=== PATIENT | female | born 1975 | race Two or more races ===

== ENCOUNTER 2018-02-26 15:53 | Observation (INO) | payer OTHER ==
[~2018-02-26] VITALS: Ht 167.6 cm; Wt 111.1 kg
[2018-02-26 00:10] VITALS: BP 126/72
[~2018-02-26 15:53] MED LIST: EXCEDRIN MIGRA1 EACH PO; HUMIRA20 MG/0.4 SC; METFORMIN HCL500 MG PO; SYNTHROID75 MCG PO; VOLTAREN-XR100 MG PO; XANAX0.25 MG PO; ZYRTEC10 M3 PO
[2018-02-26] MEDS ORDERED: ASPIRIN 81 MG CHEW TAB PO ONE (16:15)
[2018-02-26 16:25] LABS: BASOPHILS % 0.5 % (0.0-1.0); EOSINOPHILS # (AUTO) 0.3 (0.0-0.4); HEMATOCRIT 47.2 % (34.2-44.1); HEMOGLOBIN 15.5 g/dL (12.0-16.0); LYMPHOCYTES # (AUTO) 2.6 (1.0-3.2); LYMPHOCYTES % 31.9 % (18.0-39.1); MEAN CORPUSCULAR HEMOGLOBIN 28.4 pg (28-32); MEAN CORPUSCULAR HGB CONC 32.8 g/dL (31-35); MEAN CORPUSCULAR VOLUME 86.4 fL (81-99); MONOCYTES # (AUTO) 0.6 (0.2-0.8); MONOCYTES % 6.8 % (4.4-11.3); NEUTROPHILS # (AUTO) 4.8 (2.1-6.9); NEUTROPHILS % 57.4 % (38.7-80.0); PLATELET COUNT 285 x10e3/uL (140-360); RED BLOOD COUNT 5.46 x10e6/uL (3.6-5.1); RED CELL DISTRIBUTION WIDTH 13.2 % (11.7-14.4)
[2018-02-26 16:36] LABS: INR 1.03; PARTIAL THROMBOPLASTIN TIME 31.6 seconds (23.8-35.5); PROTHROMBIN TIME 12.7 seconds (11.9-14.5)
[2018-02-26 16:46] LABS: ALANINE AMINOTRANSFERASE 69 IU/L (0-55); ALBUMIN 4.1 g/dL (3.5-5.0); ALBUMIN/GLOBULIN RATIO 0.9 (0.8-2.0); ALKALINE PHOSPHATASE 100 IU/L (40-150); BLOOD UREA NITROGEN 11 mg/dL (7-26); BUN/CREATININE RATIO 13 (6-25); CALCIUM 10.3 mg/dL (8.4-10.2); CARBON DIOXIDE 21 mmol/L (22-29); CHLORIDE 106 mmol/L (98-107); CREATINE KINASE 64 IU/L (29-168); CREATININE, SERUM 0.84 mg/dL (0.57-1.11); EST GLOMERULAR FILTRATION RATE > 60 ML/MIN (60-); GLUCOSE 134 mg/dL (74-118); SODIUM 140 mmol/L (136-145)
--- NOTE | 2018-02-26 17:13 | Diagnostic Imaging Report ---
A single frontal view of the chest. HISTORY: Chest pain COMPARISON: Images from chest radiographs September 19, 2015 DISCUSSION: Portable technique, limits sensitivity of the exam. Soft tissue attenuation partially limits sensitivity of the exam. Tubes/Lines: None Lungs and pleura: Low lung volumes result in bibasilar vascular crowding, accentuation of the pulmonary interstitial markings, central pulmonary vasculature, and the cardiac silhouette. Allowing for these limitations, the findings are as follows: No evidence of a consolidative pneumonia or pulmonary alveolar edema. No definite pleural effusion or pneumothorax is identified. Heart and mediastinum: The cardiomediastinal silhouette appears unremarkable. Bones: No acute osseous lesion is identified, given this limited exam. IMPRESSION: No acute radiographic abnormality. Signed by: Dr. Alex Gates D.O., M.M.M. on 02/26/2018 5:08 PM
[2018-02-26 17:47] LABS: BILIRUBIN,URINE NEGATIVE (NEGATIVE); CLARITY,URINE CLEAR (CLEAR); COLOR,URINE YELLOW (YELLOW); KETONES,URINE NEGATIVE (NEGATIVE); LEUKOCYTE ESTERASE ,URINE NEGATIVE (NEGATIVE); NITRITE,URINE NEGATIVE (NEGATIVE); PROTEIN,URINE DIPSTICK NEGATIVE (NEGATIVE); URINE UROBILINOGEN 0.2 mg/dL (0.2 - 1)
[2018-02-26 18:11] LABS: BACTERIA,URINE MODERATE /HPF; EPITHELIAL CELLS,URINE MODERATE /LPF
[2018-02-26] MEDS ORDERED: DEXILANT60 MG PO (18:30)
[2018-02-26] MEDS ORDERED: MORPHINE SULFATE 2 MG/ML SYR IV STA (18:43)
[2018-02-26] MEDS ORDERED: ACETAMINOPHEN 325 MG TAB PO NR (18:45)
[2018-02-26 19:45] VITALS: BP 106/58
[2018-02-26] MEDS ORDERED: MORPHINE SULFATE 2 MG/ML SYR IV PRN (19:45)
[2018-02-26] MEDS ORDERED: DEXTROSE 50% SYRINGE 50 ML IV PRN (19:45)
[2018-02-26] MEDS: INSULIN REGULAR, HUMAN 100 UNIT/1 ML 3ML VIAL SQ SCH (21:00)
[2018-02-26 21:25] VITALS: BP 132/73
[2018-02-26 21:42] VITALS: BP 132/73
[2018-02-27 01:34] LABS: CREATINE KINASE 56 IU/L (29-168)
[2018-02-27 01:35] LABS: CREATINE KINASE MB < 1.00 ng/mL (0-4.3)
[2018-02-27 04:42] LABS: ANION GAP 15.7 mmol/L (8-16); BLOOD UREA NITROGEN 11 mg/dL (7-26); BUN/CREATININE RATIO 12 (6-25); CALCIUM 9.3 mg/dL (8.4-10.2); CARBON DIOXIDE 23 mmol/L (22-29); CHLORIDE 104 mmol/L (98-107); CHOL/HDL RATIO 5.5 (3.0-3.6); CHOLESTEROL 180 MD/DL (0-199); EST GLOMERULAR FILTRATION RATE > 60 ML/MIN (60-); GLUCOSE 267 mg/dL (74-118); HDL CHOLESTEROL 33 MG/DL (40-60); LDL CHOLESTEROL 117 MG/DL (60-130); POTASSIUM 3.7 mmol/L (3.5-5.1); SODIUM 139 mmol/L (136-145); TRIGLYCERIDES 151 MG/DL (0-149)
[2018-02-27 05:15] VITALS: BP 120/79
[2018-02-27 07:50] VITALS: BP 123/64
[2018-02-27] MEDS: INSULIN REGULAR, HUMAN 100 UNIT/1 ML 3ML VIAL SQ SCH ×2 (08:20→12:42)
[2018-02-27 08:58] LABS: CREATINE KINASE 51 IU/L (29-168)
[2018-02-27] MEDS ORDERED: PANTOPRAZOLE SOD 40 MG TABEC PO SCH (09:00)
[2018-02-27] MEDS ORDERED: ASPIRIN 325 MG TAB EC PO SCH (09:00)
[2018-02-27] MEDS ORDERED: METOPROLOL TARTRATE 25 MG TAB PO SCH (09:00)
--- NOTE | 2018-02-27 09:12 | History and Physical ---
PRIMARY CARE PHYSICIAN: None. CHIEF COMPLAINT: Chest pain. HISTORY OF PRESENT ILLNESS: This is a 42-year-old woman with a history of diabetes mellitus and lupus, now developing substernal chest pain described as substernal chest pain with no radiation. She did have some shortness of breath and dizziness as well as nausea and diaphoresis. Blood pressure at work was 186/111. Therefore, she came to the hospital for further evaluation and management. She did have prior chest pain in the past, but was told it was musculoskeletal related. Now her symptoms are improved. PAST MEDICAL HISTORY: Diabetes mellitus, lupus, pneumonia. PAST SURGICAL HISTORY: Achilles tendon, left side, repaired. Cholecystectomy. Orbital socket repair in 1993 on the left side. ALLERGIES: PER ELECTRONIC MEDICAL RECORD. FAMILY AND SOCIAL HISTORY: The patient is . She has no children. Occasional alcohol. No cigarettes. She works as a nurse at the [employer]. MEDICATIONS: Per electronic medical record. REVIEW OF SYSTEMS: Denies any fever. Denies any leg pain, back pain, vision changes. Denies any focal weakness. PHYSICAL EXAMINATION VITAL SIGNS: Have been reviewed. GENERAL APPEARANCE: A tired-appearing woman resting in bed. HEENT: Anicteric. CARDIOVASCULAR: Normal S1 and S2. LUNGS: Moderate breath sounds. ABDOMEN: Soft, nontender, nondistended. EXTREMITIES: No edema or calf tenderness. NEUROLOGIC: Alert and oriented times 3, moving all extremities. MUSCULOSKELETAL: No chest wall tenderness. SKIN: Dry. PSYCHIATRIC: Normal affect. LABS: Reviewed. MEDICATIONS: Reviewed. ASSESSMENT: A 42-year-old woman. 1. Chest pain. 2. Obesity. 3. Diabetes mellitus. 4. Hyperlipidemia. 5. Gastroesophageal reflux disease. 6. Hypertension. PLAN 1. Trend cardiac enzymes. 2. Obtain a 2-D echocardiogram. 3. Follow up cardiology's recommendations. 4. Treat hypertension. 5. Initiate PPI. 6. Use Lovenox and PPI. 7. Disposition: Followup testing and cardiology's recommendations. Obtain 2-D echocardiogram. Job#: [id number]
[2018-02-27] MEDS ORDERED: ACETAMINOPHEN 325 MG TAB PO PRN (09:15)
[2018-02-27 11:23] VITALS: BP 135/94
--- NOTE | 2018-02-27 14:38 | Consultation ---
DATE OF CONSULTATION: February 27, 2018 REASON FOR CONSULTATION: Chest pain. HPI: This is a 42-year-old female with a history of diabetes, lupus, and depression. Patient presents to [facility] ER with complaints of chest pain while at work. Therefore, came to the ER for further evaluation. Cardiology was consulted. Patient was seen in a room with significant other at bedside. Patient reports for the past several days to weeks been having substernal chest pain; however, yesterday while at work, developed severe chest pain with shortness of breath and dizziness. Therefore, came to the ER. Reports the chest pain has been going on with and without activities. Worse with deep breathing. Currently patient is chest pain free. PAST MEDICAL HISTORY: Diabetes, lupus, depression. SURGICAL HISTORY: Left Achilles tendon repair, cholecystectomy, and left elbow fracture repair. FAMILY HISTORY: Mother alive, age 60s, with a history of hypertension and hep C. Father is alive, age 60, with questionable lupus. SOCIAL HISTORY: She reports being . Works as a nurse at the [employer]. Denies any alcohol use or tobacco use. ALLERGIES: TO CONTRAST AND TRAMADOL. HOME MEDICATIONS: Include 1. Januvia. 2. Humira. 3. Cymbalta. REVIEW OF SYSTEMS GENERAL: Denies any fatigue, weakness, fevers, chills, night sweats. SKIN: No rashes or sores. HEENT: Positive for nausea. Denies any vomiting or vision changes, any blurred vision or double vision. Any earaches, vertigo, tinnitus, any epistaxis, sore throat, swollen neck. CARDIAC: Positive for chest pain as above. Positive dyspnea on exertion. Denies any orthopnea, PND, or any lower extremity edema. RESPIRATORY: Positive for shortness of breath. Denies any hemoptysis. GI: Positive for nausea. Good appetite. Denies any diarrhea or constipation, however does report having bloody rectal bleeding, bright red in nature. Does have a history of hemorrhoids. VASCULAR: Denies any lower extremity edema, any claudication. MUSCULOSKELETAL: Denies any muscle weakness. Does have lower back pain and generalized joint pains. NEUROLOGIC: Denies any tremors, weakness, paralysis, any fainting, blackouts, seizures. HEMATOLOGY: Denies any anemia, any bruising. ENDOCRINE: Denies any heat or cold intolerance, any polyuria, polydipsia or polyphagia. PHYSICAL EXAMINATION VITALS: Height 60 inches, weight 245 pounds. BMI 39. Current vital signs: Temperature 97.6, pulse 82, respiratory rate 16, blood pressure 135/94, pulse ox 94% on room air. GENERAL: Appears stated age. No acute distress. Reliable informant. SKIN: Does have some redness to her cheeks but no rashes or bruises. HEENT: Normocephalic. Pupils are equal and reactive. Extraocular movements are intact. NECK: Trachea midline. Oral mucosa is pink. No thyromegaly. No JVD. HEART: Regular rate and rhythm. No murmurs or clicks noted. LUNGS: Bilateral breath sounds clear to auscultation. Good airway entry and exit. ABDOMEN: Soft, nontender and nondistended. No organomegaly noted, however she is obese. MUSCULOSKELETAL: Good muscle strength throughout. No lower extremity edema, swelling. VASCULAR: There are +2 bilateral radial pulses, +2 DP and PT pulses. NEUROLOGIC: Cranial nerves II through XII seem intact. LABS: White count 8, hemoglobin 15, hematocrit 47, platelets 285. Sodium 139, potassium 3.7, BUN 11, creatinine 0.9. A1c is 7.8. Troponin less than 0.001, next less than 0.005, next less than 0.05. EKG showing normal sinus rhythm. Chest x-ray showing no acute abnormalities. ASSESSMENTS 1. Chest pain. 2. Hypertension. 3. Diabetes. 4. Lupus. PLANS 1. Patient presents with chest pain symptoms, atypical for cardiac, for the past several days. Enzymes are strongly negative x3. Preliminary echo was done, showing normal heart function and structure. 2. A stress test was offered to patient; however, patient does not want to have any stress test and wants to go home. Risks and benefits were discussed; however, patient wants to go home. 3. Do recommend that patient follow up with her clerk cashier regarding her lupus. 4. Patient is okay to leave from a cardiac standpoint since patient is refusing any further workup. Thank you very much for this consult. Dictated by Valdez Madrigal, Nurse Practitioner Job#: [id number] CANDACE
[2018-02-27 14:57] VITALS: BP 118/67
[2018-02-27] MEDS ORDERED: ENOXAPARIN SOD INJ 40 MG/0.4 ML SYR SC SCH (17:00)
[2018-02-27] MEDS ORDERED: PRAVASTATIN 20 MG TAB PO SCH (21:00)
--- NOTE | 2018-02-28 05:56 | Discharge Summary ---
PRINCIPAL DIAGNOSES 1. Atypical chest pain. 2. Obesity. 3. Diabetes mellitus. Hemoglobin A1c is 7.8, low-density lipoprotein 117, and triglycerides 151. 4. Hyperlipidemia. 5. Gastroesophageal reflux disease. SECONDARY DIAGNOSIS: Hypertension. CHIEF COMPLAINT: Chest pain. HISTORY OF PRESENT ILLNESS: This is a 42-year-old woman with chest pain. Refer to the H and P for further details. HOSPITAL COURSE: Patient was evaluated for chest pain. Cardiac enzymes were negative. Evaluated by cardiology. Stress test was offered, but patient refused. Therefore, patient was transitioned home and agreed to follow up with her primary care doctor stress test as an outpatient. DISCHARGE MEDICATIONS: Per electronic medical record. Patient was cleared by cardiology. FOLLOWUP 1. With primary care doctor in 1 week. 2. Cardiology in 3 to 5 days. CONDITION ON DISCHARGE: Stable and improving. DISCHARGE LOCATION: Home. HELIO MORTON MD Job#: [id number]
== END 2018-02-27 15:39 | disposition home or self-care (01) ==
LOC: ER 15:53 → ERHOLD 20:04 → IMCU 21:06
PROVIDERS: ADMIT Internal Medicine; ATTEND Internal Medicine
DX: R07.89 Other chest pain (principal); I10 Essential (primary) hypertension; M45.9 Ankylosing spondylitis of unspecified sites in spine; E66.9 Obesity, unspecified; E11.65 Type 2 diabetes mellitus with hyperglycemia; K21.9 Gastro-esophageal reflux disease without esophagitis; E78.5 Hyperlipidemia, unspecified; M32.9 Systemic lupus erythematosus, unspecified; Z87.01 Personal history of pneumonia (recurrent); Z82.49 Family history of ischemic heart disease and other diseases of the circulatory system; Z88.8 Allergy status to other drugs, medicaments and biological substances; Z91.041 Radiographic dye allergy status
CPT/HCPCS: 36415; 71045; 80048; 80053; 80061; 81001; 82550 ×2; 82553 ×2; 82948 ×2; 83036; 83880; 84484 ×2; 84702; 85025; 85379; 85610; 85730; 93005; 93306; 99284; G0378 ×2; J2270 ×2; S0164

== ENCOUNTER → 2018-05-29 | Day surgery (SDC) | payer OTHER ==
[2018-05-27 11:14] LABS: BASOPHILS % 0.4 % (0.0-1.0); EOSINOPHILS # (AUTO) 0.2 (0.0-0.4); EOSINOPHILS % 3.2 % (0.0-6.0); HEMATOCRIT 44.6 % (34.2-44.1); HEMOGLOBIN 14.5 g/dL (12.0-16.0); LYMPHOCYTES # (AUTO) 1.8 (1.0-3.2); LYMPHOCYTES % 23.9 % (18.0-39.1); MEAN CORPUSCULAR HEMOGLOBIN 28.1 pg (28-32); MEAN CORPUSCULAR HGB CONC 32.5 g/dL (31-35); MEAN CORPUSCULAR VOLUME 86.4 fL (81-99); MONOCYTES # (AUTO) 0.4 (0.2-0.8); MONOCYTES % 5.5 % (4.4-11.3); NEUTROPHILS # (AUTO) 4.9 (2.1-6.9); NEUTROPHILS % 66.6 % (38.7-80.0); PLATELET COUNT 225 x10e3/uL (140-360); RED BLOOD COUNT 5.16 x10e6/uL (3.6-5.1)
[~2018-05-29] MED LIST changes: +CYMBALTA20 MG PO; +DEXILANT60 MG PO; +FENTANYL CITRATE/PF 100MCG/2 ML INJ ONE; +INSULIN REGULAR, HUMAN 100 UNIT/1 ML 3ML VIAL ONE; +JANUVIA100 MG PO; +MIDAZOLAM HCL 2 MG/2 ML VIAL ONE; +PROPOFOL IV EMULSION 10 MG/ML 50 ML VIAL ONE; +TOUJEO; +TYLENOL WITH C1 EACH PO; +ULTRAM50 MG PO
--- OUTSIDE RECORDS SUMMARY | 2018-05-29 11:14 | XMS REPORT | Continuity of Care Document ---
Author Author Shira ga Organization Interface Address Unknown Phone Unavailable Problems Problem Status Onset Date Classification Date Reported Comments Source M25.552 - [facility] Active 03/05/2013 [facility] [place] Medications Medication Details Route Status Patient Instructions Ordering Provider Order Date Source Allergies, Adverse Reactions, Alerts Substance Category Reaction Severity Reaction type Status Date Reported Comments Source Immunizations Immunization Date Given Site Status Last Updated Comments Source Results Order Name Results Value Reference Range Date Interpretation Comments Source Hip bilat w pelvis and both lat hips DX Hip bilat w pelvis and both lat hips DX EXAM: XR LEFT HIP 2 VIEWS AND AP PELVIS DATE: 08/21/2016 11:47 AM CDT INDICATION: Left hip pain COMPARISON: None. TECHNIQUE: AP and frogleg lateral radiographs of the bilateral hips. DISCUSSION: No acute fracture or malalignment is identified. Hip joint spaces are preserved bilaterally. Mild facet osteoarthritis is seen in the lumbar spine. No soft tissue abnormality is identified. IMPRESSION: No acute bony abnormality. 08/21/2016 - - This report was dictated by a Associate Veterinarian/Fellow. I have personally reviewed the images as well as the Resident's interpretation and agree with the findings. Read by: Kal Kennedy MD Resident: Kal Kennedy MD Dictated Date/time: 08/21/16 13:41 Electronically Signed by: Kavita Dias MD 08/21/16 17:11 FINAL REPORT [facility] Spine lumbar 2 or 3 views DX Spine lumbar 2 or 3 views DX EXAMINATION: Lumbar spine - 2 to 3 views HISTORY: Inflammatory polyarthropathy FINDINGS: Frontal, lateral, and coned lateral views of the lumbar spine are performed without comparison. The alignment is normal without listhesis. The intervertebral disc spaces are normal. The vertebral body heights are normal without compression fracture. The sacral ala appear intact. Cholecystectomy clips are noted. IMPRESSION: 1. Normal alignment and intervertebral disc spaces of the lumbar spine. 01/17/2015 - - Read by: David Orta MD Dictated Date/time: 01/17/15 15:01 Electronically Signed by: David Orta MD 01/17/15 15:02 FINAL REPORT [facility] Foot 3 views bilateral DX Foot 3 views bilateral DX EXAMINATION: Bilateral feet 3 views each HISTORY: Unspecified inflammatory polyarthropathy FINDINGS: 3 view non-weightbearing examination of each foot is performed without comparison. There are no fractures or dislocations. 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 The remaining joint spaces are normal. There are no ankle effusions. There is heterotopic ossification at the Achilles insertion bilaterally. There are no radiopaque foreign bodies identified. IMPRESSION: 1. No radiographic evidence of inflammatory arthritis of either foot. 01/17/2015 - - Read by: David Orta MD Dictated Date/time: 01/17/15 15:05 Electronically Signed by: David Orta MD 01/17/15 15:07 FINAL REPORT [facility] Hand 3 views Bilateral DX Hand 3 views Bilateral DX EXAMINATION: Bilateral hands 3 views each. HISTORY: Unspecified inflammatory polyarthropathy FINDINGS: Three views of each hand are performed without comparison. 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 There are no fractures or dislocations. The joint spaces are normal. The alignment is normal. There are no radiopaque foreign bodies. There are no osseous erosions identified. IMPRESSION: 1. No radiographic evidence of inflammatory arthritis. 2. Note made of bilateral capitohamate coalition. 01/17/2015 - - Read by: David Orta MD Dictated Date/time: 01/17/15 14:58 Electronically Signed by: David Orta MD 01/17/15 15:01 FINAL REPORT [facility] Knee 3 Views Bilateral DX Knee 3 Views Bilateral DX EXAMINATION: Bilateral knees 3 views each. HISTORY: Unspecified inflammatory polyarthropathy FINDINGS: Frontal and tangential patellar views of both knees and lateral views of each knee are performed without comparison. There are no fractures. The joint spaces are normal. There are no knee effusions. IMPRESSION: 1. Normal radiographic examination of both knees. 01/17/2015 - - Read by: David Orta MD Dictated Date/time: 01/17/15 15:04 Electronically Signed by: David Orta MD 01/17/15 15:05 FINAL REPORT [facility] Sacroiliac joints series DX Sacroiliac joints series DX EXAMINATION: Sacroiliac joint series. HISTORY: Unspecified inflammatory polyarthropathy. FINDINGS: 2 views of the bilateral sacroiliac joints are performed without comparison. The bilateral sacroiliac joints are normal without joint space narrowing, subchondral sclerosis, subchondral cyst formation, erosions, or ankylosis. The sacral ala are intact. IMPRESSION: 1. Normal radiographic examination of the bilateral sacroiliac joints. 01/17/2015 - - Read by: David Orta MD Dictated Date/time: 01/17/15 15:02 Electronically Signed by: David Orta MD 01/17/15 15:04 FINAL REPORT [facility] Liver US Liver US EXAM: ULTRASOUND LIVER DATE: 12/14/2014 COMPARISON EXAMS: None. CLINICAL INDICATION: Elevated liver enzymes DATA: History of cholecystectomy in 2009. TECHNIQUE: Multiple transverse and longitudinal images through the right upper quadrant of the abdomen were obtained sonographically with additional supplemental color flow imaging. Permanent images were recorded. DISCUSSION: The liver is enlarged with the right lobe of the liver measuring 18.9 cm in length. The liver displays diffuse increased heterogeneous echogenicity which attenuates the sound beam which limits evaluation of the fine details of the liver. No focal hepatic pathology is seen. No intra or extrahepatic biliary ductal dilatation is seen with the common bile duct measuring 6.4 mm in maximal diameter along its visualized course. The gallbladder is surgically absent. The right kidney is of normal size and echogenicity with no hydronephrosis, masses, or calculi. It measures 11.7 cm in length. An anechoic thin-walled avascular cystic lesion is seen in the right kidney measuring 3.7 x 2.9 x 2.7 cm. No abnormalities of the visualized portions of the abdominal aorta or inferior vena cava are demonstrated. Hepatopetal flow is seen in the main portal vein which measures 10 mm in diameter. A majority of the pancreas is obscured by overlying bowel gas. No abnormalities of the visualized portions of the pancreas are seen. No ascites or pleural effusions are seen. IMPRESSION: 1. Nonspecific hepatomegaly with heterogeneous increased echogenicity of the liver, findings most compatible with moderate diffuse fatty infiltration (steatosis). This presumed steatosis attenuates the sound beam and limits evaluation of the fine details of the liver. No focal liver abnormalities are seen. 2. Status post cholecystectomy. No biliary ductal pathology is noted with the common bile duct measuring 6.4 mm in maximal diameter, within normal limits for a postcholecystectomy patient. 3. Simple 3.7 cm cyst in the right kidney. 12/14/2014 - - Read by: Orlin Moya MD Dictated Date/time: 12/14/14 11:06 Electronically Signed by: Orlin Moya MD 12/14/14 11:18 FINAL REPORT [facility] Brain w/wo contrast MRI Brain w/wo contrast MRI MRI BRAIN WITHOUT AND WITH CONTRAST CLINICAL: migraine. COMPARISON: No prior exam. COMMENTS: The volume of the brain is age-appropriate. No hydrocephalus, acute infarct, intracranial hemorrhage, mass, or midline shift is seen. The brainstem and cerebellum are free of signal abnormality. Mild to moderate paranasal sinusitis is present, with small air-fluid levels in the bilateral maxillary sinuses. No pathologic enhancement is demonstrated. IMPRESSION: 1. No acute hemorrhage, acute ischemia, or mass. 2. Mild to moderate paranasal sinusitis. 03/10/2013 - - Read by: Darryl Sung Dictated Date/time: 03/10/13 11:03 Electronically Signed by: Darryl Sung MD 03/10/13 13:02 FINAL REPORT [facility] [place] Vital Signs Vital Sign Value Date Comments Source Encounters Location Location Details Encounter Type Encounter Number Reason For Visit Attending Provider ADM Date DC Date Status Source OD [id number] 346.30 - [facility] MGR WO NT PERRY BERG 03/10/2013 Active [facility] [place] [facility] [id number] Nancy Johansen 12/14/2014 12/15/2014 [facility] [place] [facility] [place] [facility] [id number] Carlene Camacho 01/17/2015 01/18/2015 [facility] [place] [facility] [place] [facility] [id number] Jessica Hurley 08/21/2016 08/22/2016 [facility] [place] Procedures Procedure Code Date Perfomer Comments Source
[2018-05-29 14:20] VITALS: BP 141/95
--- NOTE | 2018-05-29 14:33 | Operative Report ---
DATE OF PROCEDURE: May 29, 2018 REFERRING PHYSICIAN: Dr. Aurelio Salas PROCEDURE PERFORMED: Esophagogastroduodenoscopy with biopsies. INDICATIONS FOR ESOPHAGOGASTRODUODENOSCOPY: Upper abdominal pain, postprandial bloating. MEDICATION: Patient was done under MAC. Please see anesthesiologist's note. PROCEDURE: With patient in the left lateral decubitus position, the flexible fiberoptic Olympus gastroscope was introduced into the esophagus under direct visualization without any difficulty. There was some patchy erythema noted in distal esophagus. The scope was then advanced with ease into the stomach and mucosa overlying the antrum and the body revealed some patchy erythema and low-grade edema and biopsies were obtained and sent to stain for H. pylori. There was a submucosal nodule noted in the mid body along the anterior wall that was biopsied. The pylorus was of normal contour and shape. Was intubated with ease and the scope was advanced all the way to the 2nd portion of the duodenum. The scope was then withdrawn slowly and biopsies were obtained from the proximal 2nd portion as well as the duodenal bulb to rule out sprue. The scope was then withdrawn back into the stomach and retroflexed and mucosa overlying the fundus and cardia appeared to be within normal limits. The scope was then straightened out. The stomach was decompressed. The scope was subsequently withdrawn. Patient tolerated the procedure well. IMPRESSION: 1. Distal esophagitis, mild. 2. Gastritis biopsied. Biopsy sent to stain for H. pylori. 3. Submucosal nodule, mid body, anterior wall biopsied. 4. Rule out sprue. PLAN: Follow up histology. Initiate Protonix 40 mg 1 p.o. q.a.m. a.c. Job#: [id number] cc:AURELIO SALAS DO
== END | disposition home or self-care (01) ==
LOC: OR 11:11
PROVIDERS: ATTEND Internal Medicine Gastroenterology
DX: K29.70 Gastritis, unspecified, without bleeding (principal); K29.80 Duodenitis without bleeding; K20.9 Esophagitis, unspecified; K31.89 Other diseases of stomach and duodenum; M06.9 Rheumatoid arthritis, unspecified; E11.9 Type 2 diabetes mellitus without complications; L44.9 Papulosquamous disorder, unspecified; N20.0 Calculus of kidney; J45.909 Unspecified asthma, uncomplicated; F32.9 Major depressive disorder, single episode, unspecified; F41.9 Anxiety disorder, unspecified; Z88.8 Allergy status to other drugs, medicaments and biological substances; Z01.810 Encounter for preprocedural cardiovascular examination; Z01.812 Encounter for preprocedural laboratory examination; Z79.4 Long term (current) use of insulin; Z68.37 Body mass index [BMI] 37.0-37.9, adult; Z80.0 Family history of malignant neoplasm of digestive organs
CPT/HCPCS: 36415 ×2; 43239; 81025; 82948; 85025; 93005; J2250

== ENCOUNTER 2019-04-05 17:34 | Emergency (ER) | payer OTHER ==
[~2019-04-05] VITALS: Ht 167.6 cm; Wt 111.1 kg
[~2019-04-05 17:34] MED LIST changes: -FENTANYL CITRATE/PF 100MCG/2 ML INJ ONE; -INSULIN REGULAR, HUMAN 100 UNIT/1 ML 3ML VIAL ONE; -MIDAZOLAM HCL 2 MG/2 ML VIAL ONE; -PROPOFOL IV EMULSION 10 MG/ML 50 ML VIAL ONE
[2019-04-05] MEDS ORDERED: SODIUM CHLORIDE 0.9% 1000ML 1,000 ML IV STA ×2 (18:00→19:32)
[2019-04-05] MEDS ORDERED: ULTRAM 50MG50 MG (18:00)
[2019-04-05] MEDS ORDERED: VYVANSE50 MG (18:00)
[2019-04-05] MEDS ORDERED: DEXAMETHASONE SOD PHOS 10 MG/1 ML VIAL IV ONE ×2 (18:00→20:00)
[2019-04-05] MEDS ORDERED: HUMIRA40 MG/0.1 (18:00)
[2019-04-05] MEDS ORDERED: CELEBREX100 MG PO (18:01)
[2019-04-05] MEDS ORDERED: OMEPRAZOLE40 MG PO (18:01)
[2019-04-05] MEDS ORDERED: EMERGEN-C 500500 MG (18:02)
[2019-04-05] MEDS ORDERED: AMERGE1 MG (18:04)
[2019-04-05] MEDS ORDERED: DIPHENHYDRAMINE HCL INJ 50 MG/ML VIAL ONE ×2 (18:21→20:10)
[2019-04-05] MEDS ORDERED: DEXAMETHASONE SOD PHOS 10 MG/1 ML VIAL ONE ×2 (18:21→20:10)
[2019-04-05] MEDS ORDERED: PROMETHAZINE HCL (IM) 25 MG/ML VIAL ONE ×2 (18:22→20:19)
[2019-04-05] MEDS ORDERED: KETOROLAC TROMETHAMINE 30 MG/ML VIAL ONE (18:22)
[2019-04-05] MEDS ORDERED: FAMOTIDINE 20 MG/2 ML VIAL IV ONE ×2 (18:22→18:30)
[2019-04-05] MEDS ORDERED: SODIUM CHLORIDE 0.9% 1000ML 1,000 ML ONE ×2 (18:23→20:10)
--- NOTE | 2019-04-05 18:29 | NUR ---
BLANKET GIVEN, LIGHTS OFF, CALL TORRES TIED TO RAIL; TV ON PER PT REQUEST. UPDATED PLAN OF CARE.
[2019-04-05] MEDS ORDERED: PROMETHAZINE 25MG/ NS 50ML (IV) IV ONE (18:30)
[2019-04-05] MEDS ORDERED: DIPHENHYDRAMINE HCL INJ 50 MG/ML VIAL IV ONE ×2 (18:30→19:45)
[2019-04-05] MEDS ORDERED: KETOROLAC TROMETHAMINE 30 MG/ML VIAL IV ONE (18:30)
--- NOTE | 2019-04-05 19:05 | Diagnostic Imaging Report ---
History: Headache Comparison studies: None Technique: Axial images were obtained from the skull base to the vertex. Coronal and sagittal reconstructions obtained from the axial data. Dose modulation, iterative reconstruction, and/or weight based adjustment of the mA/kV was utilized to reduce the radiation dose to as low as reasonably achievable. Intravenous contrast: None Findings: Scalp/skull: No abnormalities. No fractures, blastic or lytic lesions. Extra-axial spaces: No masses. No fluid collections. Brain sulci: Appropriate for age. Ventricles: Normal in size and configuration. No hydrocephalus. Parenchyma: No abnormal densities. No masses, hemorrhage, acute or chronic cortical vascular insults. Sellar/suprasellar region: No abnormalities Craniocervical junction: Patent foramen magnum. No Chiari one malformation. Incidental findings: None. IMPRESSION: No abnormalities. Signed by: Dr. Abdirahman Portillo M.D. on 04/05/2019 7:02 PM
[2019-04-05] MEDS ORDERED: PROMETHAZINE 12.5MG/ NACL 0.9% 12.5 MG/50 ML BAG IV ONE (19:45)
[2019-04-05 21:13] VITALS: BP 144/81
== END 2019-04-05 21:18 | disposition home or self-care (01) ==
LOC: FSED 17:34
DX: G43.011 Migraine without aura, intractable, with status migrainosus (principal)
CPT/HCPCS: 70450; 80053; 81003; 82553; 85025; 99284; J1100; J1200; J1885; J2550; J7030